=== PATIENT | female | born 1975 | race Caucasian/White ===

== ENCOUNTER 2022-07-11 17:14 | Inpatient (IN) | payer OTHER ==
[2022-07-11 18:38] VITALS: BMI 25.7
[2022-07-11] MEDS ORDERED: chlordiazePOXIDE HCL 25 MG CAPSULE PO PRN (19:04)
[2022-07-11] MEDS ORDERED: DICYCLOMINE HCL 10 MG CAPSULE PO PRN (19:05)
[2022-07-11] MEDS ORDERED: ONDANSETRON *ODT* 4 MG TABLET SL PRN (19:05)
[2022-07-11] MEDS ORDERED: BENZOCAINE/MENTHOL (CHLORASEPTIC ) LOZENGE MM PRN (19:05)
[2022-07-11] MEDS ORDERED: MAGNESIUM CITRATE 300 ML BOTTLE PO PRN (19:05)
[2022-07-11] MEDS ORDERED: BISMUTH SUBSALICYLATE 524 MG/30 ML PO PRN (19:05)
[2022-07-11] MEDS ORDERED: ACETAMINOPHEN 325 MG TABLET (FP) PO PRN (19:05)
[2022-07-11] MEDS ORDERED: LOPERAMIDE HCL 2 MG CAPSULE PO PRN (19:05)
[2022-07-11] MEDS ORDERED: MAGNESIUM HYDROX 2400MG/30ML ORAL SUSPENSION 30 ML CUP PO PRN (19:05)
[2022-07-11] MEDS ORDERED: IBUPROFEN 400 MG TABLET (FP) PO PRN (19:05)
[2022-07-11] MEDS ORDERED: MELATONIN 5 MG TABLETS PO SCH (22:00)
[2022-07-11] MEDS: IBUPROFEN 600 MG TABLET (FP) PO PRN (22:30)
[2022-07-11] MEDS: MELATONIN 5 MG TABLETS PO SCH (22:30)
[2022-07-11] MEDS: THIAMINE HCL 100 MG TABLET (FP) PO SCH (22:31)
[2022-07-11] MEDS: PRENATAL VITAMINS W/ FOLIC ACID TABLET (FP) PO SCH (22:31)
[2022-07-11] MEDS: chlordiazePOXIDE HCL 25 MG CAPSULE PO SCH (22:31)
[2022-07-11] MEDS: hydrOXYzine PAMOATE 25 MG CAPSULE (FP) PO SCH (22:31)
[2022-07-12] MEDS: chlordiazePOXIDE HCL 25 MG CAPSULE PO SCH ×4 (06:39→22:08)
[2022-07-12] MEDS: hydrOXYzine PAMOATE 25 MG CAPSULE (FP) PO SCH ×5 (06:39→22:07)
[2022-07-12] MEDS: NICOTINE 10 MG CARTRIDGE (INHALER) IH PRN (10:21)
[2022-07-12] MEDS: PRENATAL VITAMINS W/ FOLIC ACID TABLET (FP) PO SCH (10:22)
[2022-07-12 11:14] LABS: HEMATOCRIT 38.9 % (32.4-45.2); MCH 31.6 pg (25.7-33.7); MCHC 33.5 g/dl (32.0-36.0); MEAN CELL VOLUME 94.3 fl (80-96); PLATELET COUNT 331 10^3/uL (134-434); RBC 4.12 M/mm3 (3.60-5.2); RDW 14.8 % (11.6-15.6); WHITE BLOOD COUNT 9.9 K/mm3 (4.0-10.0)
[2022-07-12 11:15] LABS: ALBUMIN 3.2 g/dl (3.4-5.0)
[2022-07-12 11:18] LABS: CREATININE 0.7 mg/dL (0.55-1.3)
[2022-07-12] MEDS: GABAPENTIN 100 MG CAPSULE PO SCH ×2 (15:20→22:07)
[2022-07-12] MEDS: ACETAMINOPHEN 325 MG TABLET (FP) PO PRN (15:21)
[2022-07-12] MEDS: ALBUTEROL SO4 HFA INHALER IH PRN (18:23)
[2022-07-12] MEDS: IBUPROFEN 600 MG TABLET (FP) PO PRN (19:31)
[2022-07-12] MEDS: BUDESONIDE/FORMETEROL FUMARATE 160/4.5 mcg INHALER IH SCH (22:06)
[2022-07-12] MEDS: MELATONIN 5 MG TABLETS PO SCH (22:07)
[2022-07-12] MEDS: THIAMINE HCL 100 MG TABLET (FP) PO SCH (22:07)
[2022-07-13] MEDS: GABAPENTIN 100 MG CAPSULE PO SCH ×3 (06:21→22:07)
[2022-07-13] MEDS: chlordiazePOXIDE HCL 25 MG CAPSULE PO SCH ×4 (06:21→22:11)
[2022-07-13] MEDS: hydrOXYzine PAMOATE 25 MG CAPSULE (FP) PO SCH ×5 (06:22→22:07)
[2022-07-13] MEDS: MONTELUKAST NA 10 MG TABLET PO SCH (06:23)
[2022-07-13] MEDS: NICOTINE 10 MG CARTRIDGE (INHALER) IH PRN ×2 (10:05→22:12)
[2022-07-13] MEDS: ALBUTEROL SO4 HFA INHALER IH PRN (10:05)
[2022-07-13] MEDS: PRENATAL VITAMINS W/ FOLIC ACID TABLET (FP) PO SCH (10:07)
[2022-07-13] MEDS: amLODIPine BESYLATE 5 MG TABLET (FP) PO SCH (10:07)
[2022-07-13] MEDS: BUDESONIDE/FORMETEROL FUMARATE 160/4.5 mcg INHALER IH SCH ×2 (10:11→22:07)
[2022-07-13] MEDS: METHOCARBAMOL 500 MG TABLET PO PRN ×2 (10:13→22:08)
[2022-07-13] MEDS: ACETAMINOPHEN 325 MG TABLET (FP) PO PRN (13:31)
[2022-07-13] MEDS: MELATONIN 5 MG TABLETS PO SCH (22:07)
[2022-07-13] MEDS: THIAMINE HCL 100 MG TABLET (FP) PO SCH (22:07)
[2022-07-14] MEDS ORDERED: chlordiazePOXIDE HCL 10 MG CAPSULE PO PRN
[2022-07-14] MEDS: ALBUTEROL SO4 HFA INHALER IH PRN (02:09)
[2022-07-14] MEDS: IBUPROFEN 400 MG TABLET (FP) PO PRN (02:11)
[2022-07-14] MEDS: hydrOXYzine PAMOATE 25 MG CAPSULE (FP) PO SCH ×5 (06:06→22:25)
[2022-07-14] MEDS: chlordiazePOXIDE HCL 10 MG CAPSULE PO SCH ×4 (06:06→22:26)
[2022-07-14] MEDS: METHOCARBAMOL 500 MG TABLET PO PRN ×2 (06:06→14:38)
[2022-07-14] MEDS: MONTELUKAST NA 10 MG TABLET PO SCH (06:06)
[2022-07-14] MEDS: GABAPENTIN 100 MG CAPSULE PO SCH ×3 (06:06→22:25)
[2022-07-14] MEDS: amLODIPine BESYLATE 5 MG TABLET (FP) PO SCH (10:36)
[2022-07-14] MEDS: PRENATAL VITAMINS W/ FOLIC ACID TABLET (FP) PO SCH (10:36)
[2022-07-14] MEDS: NICOTINE 10 MG CARTRIDGE (INHALER) IH PRN (10:38)
[2022-07-14] MEDS: BUDESONIDE/FORMETEROL FUMARATE 160/4.5 mcg INHALER IH SCH ×2 (10:38→22:24)
[2022-07-14] MEDS: IBUPROFEN 600 MG TABLET (FP) PO PRN (10:41)
[2022-07-14] MEDS: MAG HYDROX/AL HYDROX/SIMETH 30 ML UNIT-DOSE CUP PO PRN (18:59)
[2022-07-14] MEDS: MELATONIN 5 MG TABLETS PO SCH (22:24)
[2022-07-14] MEDS: THIAMINE HCL 100 MG TABLET (FP) PO SCH (22:25)
[2022-07-15] MEDS: ALBUTEROL SO4 HFA INHALER IH PRN ×3 (01:26→17:55)
[2022-07-15] MEDS: IBUPROFEN 600 MG TABLET (FP) PO PRN (04:28)
[2022-07-15] MEDS: METHOCARBAMOL 500 MG TABLET PO PRN ×3 (04:28→22:12)
[2022-07-15] MEDS: chlordiazePOXIDE HCL 10 MG CAPSULE PO SCH ×2 (04:30→17:48)
[2022-07-15] MEDS: hydrOXYzine PAMOATE 25 MG CAPSULE (FP) PO SCH ×5 (05:08→22:12)
[2022-07-15] MEDS: GABAPENTIN 100 MG CAPSULE PO SCH ×3 (05:08→22:12)
[2022-07-15] MEDS: MONTELUKAST NA 10 MG TABLET PO SCH (07:03)
[2022-07-15] MEDS: amLODIPine BESYLATE 5 MG TABLET (FP) PO SCH (10:19)
[2022-07-15] MEDS: BUDESONIDE/FORMETEROL FUMARATE 160/4.5 mcg INHALER IH SCH ×2 (10:19→22:12)
[2022-07-15] MEDS: NICOTINE 10 MG CARTRIDGE (INHALER) IH PRN ×2 (10:20→22:13)
[2022-07-15] MEDS: PRENATAL VITAMINS W/ FOLIC ACID TABLET (FP) PO SCH (10:20)
[2022-07-15] MEDS: ACETAMINOPHEN 325 MG TABLET (FP) PO PRN (17:53)
[2022-07-15] MEDS: MAG HYDROX/AL HYDROX/SIMETH 30 ML UNIT-DOSE CUP PO PRN (22:12)
[2022-07-15] MEDS: THIAMINE HCL 100 MG TABLET (FP) PO SCH (22:12)
[2022-07-15] MEDS: MELATONIN 5 MG TABLETS PO SCH (22:15)
[2022-07-16] MEDS ORDERED: chlordiazePOXIDE HCL 10 MG CAPSULE PO ONE (05:00)
[2022-07-16] MEDS: hydrOXYzine PAMOATE 25 MG CAPSULE (FP) PO SCH ×3 (06:12→13:41)
[2022-07-16] MEDS: GABAPENTIN 100 MG CAPSULE PO SCH ×2 (06:12→13:41)
[2022-07-16] MEDS: MONTELUKAST NA 10 MG TABLET PO SCH (06:13)
[2022-07-16] MEDS: METHOCARBAMOL 500 MG TABLET PO PRN ×2 (06:14→13:41)
[2022-07-16] MEDS: BUDESONIDE/FORMETEROL FUMARATE 160/4.5 mcg INHALER IH SCH (10:11)
[2022-07-16] MEDS: ALBUTEROL SO4 HFA INHALER IH PRN (10:11)
[2022-07-16] MEDS: PRENATAL VITAMINS W/ FOLIC ACID TABLET (FP) PO SCH (10:12)
[2022-07-16] MEDS: amLODIPine BESYLATE 5 MG TABLET (FP) PO SCH (10:12)
[2022-07-16] MEDS: IBUPROFEN 400 MG TABLET (FP) PO PRN (10:14)
[2022-07-16 13:13] VITALS: BP 99/60; PULSE 83; RESP 18; TEMP 97.3
== END 2022-07-16 15:17 | disposition other institution (70) | DRG 775 ==
LOC: YASAS 17:14 → Y3N 20:34
PROVIDERS: ADMIT Allergy & Immunology; ATTEND Surgery
PROC: HZ2ZZZZ Detoxification Services for Substance Abuse Treatment (ICD-10-PCS; principal; 2022-07-11)
DX: F10.230 Alcohol dependence with withdrawal, uncomplicated (principal); F17.210 Nicotine dependence, cigarettes, uncomplicated; I10 Essential (primary) hypertension; M25.569 Pain in unspecified knee; G89.29 Other chronic pain; K21.9 Gastro-esophageal reflux disease without esophagitis
CPT/HCPCS: 36415; 80053; 81025; 85027; 86780; C9803-CS; Q0162; U0003; U0005

== ENCOUNTER 2022-07-16 15:25 | Inpatient (IN) | payer OTHER ==
[2022-07-16] MEDS ORDERED: guaiFENesin 200 MG/10 ML 10 ML UNIT-DOSE CUPS PO PRN (16:00)
[2022-07-16] MEDS ORDERED: MAG HYDROX/AL HYDROX/SIMETH 30 ML UNIT-DOSE CUP PO PRN (16:00)
[2022-07-16] MEDS ORDERED: BENZOCAINE/MENTHOL (CHLORASEPTIC ) LOZENGE MM PRN (16:00)
[2022-07-16] MEDS ORDERED: P-EPHED 60MG/TRIPROLIDI 2.5MG TABLET PO PRN (16:00)
[2022-07-16] MEDS ORDERED: MAGNESIUM CITRATE 300 ML BOTTLE PO PRN (16:00)
[2022-07-16] MEDS ORDERED: LOPERAMIDE HCL 2 MG CAPSULE PO PRN (16:00)
[2022-07-16] MEDS ORDERED: TUBERCULIN PPD 5 TU/0.1ML VIAL ID ONE (17:53)
[2022-07-16] MEDS: NICOTINE 10 MG CARTRIDGE (INHALER) IH PRN (21:23)
[2022-07-16] MEDS: BUDESONIDE/FORMETEROL FUMARATE 160/4.5 mcg INHALER IH SCH (21:23)
[2022-07-16] MEDS: GABAPENTIN 100 MG CAPSULE PO SCH (21:24)
[2022-07-16] MEDS: THIAMINE HCL 100 MG TABLET (FP) PO SCH (21:24)
[2022-07-16] MEDS: hydrOXYzine PAMOATE 25 MG CAPSULE (FP) PO PRN (21:26)
[2022-07-16] MEDS ORDERED: MELATONIN 5 MG TABLETS PO SCH (22:00)
[2022-07-17] MEDS: IBUPROFEN 400 MG TABLET (FP) PO PRN ×2 (06:26→21:28)
[2022-07-17] MEDS: GABAPENTIN 100 MG CAPSULE PO SCH ×3 (06:26→21:24)
[2022-07-17] MEDS: MONTELUKAST NA 10 MG TABLET PO SCH (06:26)
[2022-07-17] MEDS: NICOTINE 7 MG/24 HOURS TOPICAL PATCH TD SCH (10:15)
[2022-07-17] MEDS: PRENATAL VITAMINS W/ FOLIC ACID TABLET (FP) PO SCH (10:15)
[2022-07-17] MEDS: BUDESONIDE/FORMETEROL FUMARATE 160/4.5 mcg INHALER IH SCH ×2 (10:15→21:25)
[2022-07-17] MEDS: NICOTINE 10 MG CARTRIDGE (INHALER) IH PRN ×2 (10:16→21:30)
[2022-07-17] MEDS: amLODIPine BESYLATE 5 MG TABLET (FP) PO SCH (10:16)
[2022-07-17] MEDS: hydrOXYzine PAMOATE 25 MG CAPSULE (FP) PO PRN ×2 (10:18→18:21)
[2022-07-17] MEDS ORDERED: LIDOCAINE 5% TOPICAL PATCH TP SCH ×2 (13:45)
[2022-07-17] MEDS: METHOCARBAMOL 500 MG TABLET PO PRN (14:32)
[2022-07-17 15:03] LABS: HIV INTERPRETATION NEGATIVE (NEGATIVE)
[2022-07-17] MEDS: LIDOCAINE 5% TOPICAL PATCH TP SCH (15:08)
[2022-07-17] MEDS: LIDOCAINE PATCH REMOVAL MC SCH (21:24)
[2022-07-17] MEDS: SUVOREXANT 10 MG TABLET PO PRN (21:25)
[2022-07-17] MEDS: THIAMINE HCL 100 MG TABLET (FP) PO SCH (21:25)
[2022-07-17] MEDS ORDERED: LIDOCAINE PATCH REMOVAL MC SCH (22:00)
[2022-07-18] MEDS: NICOTINE 10 MG CARTRIDGE (INHALER) IH PRN ×2 (06:20→10:27)
[2022-07-18] MEDS: MONTELUKAST NA 10 MG TABLET PO SCH (06:20)
[2022-07-18] MEDS: GABAPENTIN 100 MG CAPSULE PO SCH ×2 (06:20→14:30)
[2022-07-18] MEDS: hydrOXYzine PAMOATE 25 MG CAPSULE (FP) PO PRN ×3 (06:21→14:30)
[2022-07-18] MEDS: IBUPROFEN 400 MG TABLET (FP) PO PRN ×2 (06:23→21:24)
[2022-07-18] MEDS: LIDOCAINE 5% TOPICAL PATCH TP SCH (10:24)
[2022-07-18] MEDS: BUDESONIDE/FORMETEROL FUMARATE 160/4.5 mcg INHALER IH SCH ×2 (10:25→21:43)
[2022-07-18] MEDS: NICOTINE 7 MG/24 HOURS TOPICAL PATCH TD SCH (10:25)
[2022-07-18] MEDS: amLODIPine BESYLATE 5 MG TABLET (FP) PO SCH (10:25)
[2022-07-18] MEDS: PRENATAL VITAMINS W/ FOLIC ACID TABLET (FP) PO SCH (10:25)
[2022-07-18] MEDS: ALBUTEROL SO4 HFA INHALER IH PRN (10:26)
[2022-07-18] MEDS: THIAMINE HCL 100 MG TABLET (FP) PO SCH (21:22)
[2022-07-18] MEDS: METHOCARBAMOL 500 MG TABLET PO PRN (21:22)
[2022-07-18] MEDS: GABAPENTIN 300 MG CAPSULE PO SCH (21:23)
[2022-07-18] MEDS: SUVOREXANT 10 MG TABLET PO PRN (21:24)
[2022-07-18] MEDS: LIDOCAINE PATCH REMOVAL MC SCH (21:43)
[2022-07-19] MEDS: hydrOXYzine PAMOATE 25 MG CAPSULE (FP) PO PRN ×3 (06:24→21:41)
[2022-07-19] MEDS: IBUPROFEN 400 MG TABLET (FP) PO PRN ×2 (06:24→21:41)
[2022-07-19] MEDS: MONTELUKAST NA 10 MG TABLET PO SCH (06:24)
[2022-07-19] MEDS: GABAPENTIN 300 MG CAPSULE PO SCH ×3 (06:24→21:40)
[2022-07-19] MEDS: NICOTINE 10 MG CARTRIDGE (INHALER) IH PRN ×3 (06:26→21:43)
[2022-07-19] MEDS: LIDOCAINE 5% TOPICAL PATCH TP SCH (10:12)
[2022-07-19] MEDS: PRENATAL VITAMINS W/ FOLIC ACID TABLET (FP) PO SCH (10:13)
[2022-07-19] MEDS: BUDESONIDE/FORMETEROL FUMARATE 160/4.5 mcg INHALER IH SCH ×2 (10:13→21:40)
[2022-07-19] MEDS: NICOTINE 7 MG/24 HOURS TOPICAL PATCH TD SCH (10:14)
[2022-07-19] MEDS: amLODIPine BESYLATE 5 MG TABLET (FP) PO SCH (10:14)
[2022-07-19] MEDS: ALBUTEROL SO4 HFA INHALER IH PRN (10:14)
[2022-07-19 14:39] LABS: PH,URINE 6.5 (5.0-8.0); URINE APPEARANCE CLEAR; URINE BILIRUBIN NEGATIVE (NEGATIVE); URINE COLOR YELLOW; URINE GLUCOSE (UA) NEGATIVE (NEGATIVE); URINE KETONE NEGATIVE (NEGATIVE); URINE LEUK ESTERASE NEGATIVE (NEGATIVE); URINE NITRITE NEGATIVE (NEGATIVE); URINE PROTEIN NEGATIVE (NEGATIVE); URINE UROBILINOGEN 0.2 mg/dL (0.2-1.0)
[2022-07-19] MEDS: NALTREXONE HCL 50 MG TABLET PO SCH (14:41)
[2022-07-19] MEDS: THIAMINE HCL 100 MG TABLET (FP) PO SCH (21:40)
[2022-07-19] MEDS: COLLOIDAL OATMEAL 1 BAR EACH TP PRN (21:44)
[2022-07-19] MEDS: LIDOCAINE PATCH REMOVAL MC SCH (21:59)
[2022-07-20] MEDS: GABAPENTIN 300 MG CAPSULE PO SCH ×3 (08:04→21:39)
[2022-07-20] MEDS: MONTELUKAST NA 10 MG TABLET PO SCH (08:04)
[2022-07-20] MEDS: NICOTINE 7 MG/24 HOURS TOPICAL PATCH TD SCH (10:06)
[2022-07-20] MEDS: NICOTINE 10 MG CARTRIDGE (INHALER) IH PRN (10:06)
[2022-07-20] MEDS: LIDOCAINE 5% TOPICAL PATCH TP SCH (10:07)
[2022-07-20] MEDS: NALTREXONE HCL 50 MG TABLET PO SCH (10:08)
[2022-07-20] MEDS: amLODIPine BESYLATE 5 MG TABLET (FP) PO SCH (10:08)
[2022-07-20] MEDS: PRENATAL VITAMINS W/ FOLIC ACID TABLET (FP) PO SCH (10:09)
[2022-07-20] MEDS: BUDESONIDE/FORMETEROL FUMARATE 160/4.5 mcg INHALER IH SCH ×2 (10:09→21:38)
[2022-07-20] MEDS: LIDOCAINE PATCH REMOVAL MC SCH (21:39)
[2022-07-20] MEDS: METHOCARBAMOL 500 MG TABLET PO PRN (21:39)
[2022-07-20] MEDS: hydrOXYzine PAMOATE 25 MG CAPSULE (FP) PO PRN (21:39)
[2022-07-20] MEDS: THIAMINE HCL 100 MG TABLET (FP) PO SCH (21:39)
[2022-07-20] MEDS: SUVOREXANT 10 MG TABLET PO PRN (21:40)
[2022-07-21] MEDS: MONTELUKAST NA 10 MG TABLET PO SCH (06:34)
[2022-07-21] MEDS: GABAPENTIN 300 MG CAPSULE PO SCH ×3 (06:34→21:43)
[2022-07-21] MEDS: PRENATAL VITAMINS W/ FOLIC ACID TABLET (FP) PO SCH (10:02)
[2022-07-21] MEDS: IBUPROFEN 400 MG TABLET (FP) PO PRN ×2 (10:02→21:45)
[2022-07-21] MEDS: amLODIPine BESYLATE 5 MG TABLET (FP) PO SCH (10:03)
[2022-07-21] MEDS: NICOTINE 7 MG/24 HOURS TOPICAL PATCH TD SCH (10:03)
[2022-07-21] MEDS: LIDOCAINE 5% TOPICAL PATCH TP SCH (10:03)
[2022-07-21] MEDS: NICOTINE 10 MG CARTRIDGE (INHALER) IH PRN ×3 (10:04→21:46)
[2022-07-21] MEDS: NALTREXONE HCL 50 MG TABLET PO SCH (10:05)
[2022-07-21] MEDS: BUDESONIDE/FORMETEROL FUMARATE 160/4.5 mcg INHALER IH SCH ×2 (10:05→21:46)
[2022-07-21] MEDS: ALBUTEROL SO4 HFA INHALER IH PRN (10:06)
[2022-07-21] MEDS: LIDOCAINE PATCH REMOVAL MC SCH (21:42)
[2022-07-21] MEDS: METHOCARBAMOL 500 MG TABLET PO PRN (21:43)
[2022-07-21] MEDS: THIAMINE HCL 100 MG TABLET (FP) PO SCH (21:43)
[2022-07-21] MEDS: hydrOXYzine PAMOATE 25 MG CAPSULE (FP) PO PRN (21:43)
[2022-07-21] MEDS: SUVOREXANT 15 MG TABLET PO PRN (21:44)
[2022-07-22] MEDS: MONTELUKAST NA 10 MG TABLET PO SCH (06:06)
[2022-07-22] MEDS: GABAPENTIN 300 MG CAPSULE PO SCH ×3 (06:06→21:31)
[2022-07-22] MEDS: NICOTINE 10 MG CARTRIDGE (INHALER) IH PRN ×4 (06:07→21:31)
[2022-07-22] MEDS: PRENATAL VITAMINS W/ FOLIC ACID TABLET (FP) PO SCH (10:17)
[2022-07-22] MEDS: METHOCARBAMOL 500 MG TABLET PO PRN ×2 (10:18→21:33)
[2022-07-22] MEDS: NALTREXONE HCL 50 MG TABLET PO SCH (10:18)
[2022-07-22] MEDS: BUDESONIDE/FORMETEROL FUMARATE 160/4.5 mcg INHALER IH SCH ×2 (10:18→21:41)
[2022-07-22] MEDS: amLODIPine BESYLATE 5 MG TABLET (FP) PO SCH (10:18)
[2022-07-22] MEDS: LIDOCAINE 5% TOPICAL PATCH TP SCH (10:19)
[2022-07-22] MEDS: NICOTINE 7 MG/24 HOURS TOPICAL PATCH TD SCH (10:19)
[2022-07-22] MEDS: IBUPROFEN 400 MG TABLET (FP) PO PRN (14:12)
[2022-07-22] MEDS: hydrOXYzine PAMOATE 25 MG CAPSULE (FP) PO PRN (21:31)
[2022-07-22] MEDS: THIAMINE HCL 100 MG TABLET (FP) PO SCH (21:31)
[2022-07-22] MEDS: SUVOREXANT 15 MG TABLET PO PRN (21:32)
[2022-07-22] MEDS: LIDOCAINE PATCH REMOVAL MC SCH (21:42)
[2022-07-23] MEDS: MONTELUKAST NA 10 MG TABLET PO SCH (06:13)
[2022-07-23] MEDS: GABAPENTIN 300 MG CAPSULE PO SCH ×3 (06:13→21:25)
[2022-07-23] MEDS: NICOTINE 10 MG CARTRIDGE (INHALER) IH PRN ×2 (06:13→21:25)
[2022-07-23] MEDS: IBUPROFEN 400 MG TABLET (FP) PO PRN (06:14)
[2022-07-23] MEDS: NALTREXONE HCL 50 MG TABLET PO SCH (10:20)
[2022-07-23] MEDS: BUDESONIDE/FORMETEROL FUMARATE 160/4.5 mcg INHALER IH SCH ×2 (10:20→21:24)
[2022-07-23] MEDS: NICOTINE 7 MG/24 HOURS TOPICAL PATCH TD SCH (10:20)
[2022-07-23] MEDS: LIDOCAINE 5% TOPICAL PATCH TP SCH (10:20)
[2022-07-23] MEDS: amLODIPine BESYLATE 5 MG TABLET (FP) PO SCH (10:21)
[2022-07-23] MEDS: PRENATAL VITAMINS W/ FOLIC ACID TABLET (FP) PO SCH (10:21)
[2022-07-23] MEDS: METHOCARBAMOL 500 MG TABLET PO PRN ×2 (10:21→21:27)
[2022-07-23] MEDS: SUVOREXANT 15 MG TABLET PO PRN (21:24)
[2022-07-23] MEDS: THIAMINE HCL 100 MG TABLET (FP) PO SCH (21:25)
[2022-07-23] MEDS: hydrOXYzine PAMOATE 25 MG CAPSULE (FP) PO PRN (21:25)
[2022-07-23] MEDS: LIDOCAINE PATCH REMOVAL MC SCH (21:25)
[2022-07-23] MEDS: ACETAMINOPHEN 325 MG TABLET (FP) PO PRN (21:26)
[2022-07-24] MEDS: MONTELUKAST NA 10 MG TABLET PO SCH (06:26)
[2022-07-24] MEDS: GABAPENTIN 300 MG CAPSULE PO SCH ×3 (06:26→21:28)
[2022-07-24] MEDS: ACETAMINOPHEN 325 MG TABLET (FP) PO PRN ×2 (06:27→14:29)
[2022-07-24] MEDS: NICOTINE 10 MG CARTRIDGE (INHALER) IH PRN ×3 (06:28→21:28)
[2022-07-24] MEDS: BUDESONIDE/FORMETEROL FUMARATE 160/4.5 mcg INHALER IH SCH ×2 (10:21→21:27)
[2022-07-24] MEDS: PRENATAL VITAMINS W/ FOLIC ACID TABLET (FP) PO SCH (10:21)
[2022-07-24] MEDS: NALTREXONE HCL 50 MG TABLET PO SCH (10:22)
[2022-07-24] MEDS: NICOTINE 7 MG/24 HOURS TOPICAL PATCH TD SCH (10:22)
[2022-07-24] MEDS: amLODIPine BESYLATE 5 MG TABLET (FP) PO SCH (10:22)
[2022-07-24] MEDS: LIDOCAINE 5% TOPICAL PATCH TP SCH (10:22)
[2022-07-24] MEDS: METHOCARBAMOL 500 MG TABLET PO PRN ×2 (10:23→21:28)
[2022-07-24] MEDS: IBUPROFEN 400 MG TABLET (FP) PO PRN ×2 (10:23→21:31)
[2022-07-24] MEDS: ALBUTEROL SO4 HFA INHALER IH PRN (10:25)
[2022-07-24] MEDS: hydrOXYzine PAMOATE 25 MG CAPSULE (FP) PO PRN (21:28)
[2022-07-24] MEDS: THIAMINE HCL 100 MG TABLET (FP) PO SCH (21:28)
[2022-07-24] MEDS: SUVOREXANT 15 MG TABLET PO PRN (21:29)
[2022-07-24] MEDS: LIDOCAINE PATCH REMOVAL MC SCH (23:02)
[2022-07-25] MEDS: GABAPENTIN 300 MG CAPSULE PO SCH ×3 (06:14→21:38)
[2022-07-25] MEDS: MONTELUKAST NA 10 MG TABLET PO SCH (06:15)
[2022-07-25] MEDS: ACETAMINOPHEN 325 MG TABLET (FP) PO PRN (06:15)
[2022-07-25] MEDS: PRENATAL VITAMINS W/ FOLIC ACID TABLET (FP) PO SCH (10:04)
[2022-07-25] MEDS: BUDESONIDE/FORMETEROL FUMARATE 160/4.5 mcg INHALER IH SCH ×2 (10:04→21:37)
[2022-07-25] MEDS: NICOTINE 10 MG CARTRIDGE (INHALER) IH PRN ×2 (10:05→21:40)
[2022-07-25] MEDS: NALTREXONE HCL 50 MG TABLET PO SCH (10:05)
[2022-07-25] MEDS: amLODIPine BESYLATE 5 MG TABLET (FP) PO SCH (10:05)
[2022-07-25] MEDS: NICOTINE 7 MG/24 HOURS TOPICAL PATCH TD SCH (10:06)
[2022-07-25] MEDS: METHOCARBAMOL 500 MG TABLET PO PRN ×2 (10:08→21:38)
[2022-07-25] MEDS: IBUPROFEN 400 MG TABLET (FP) PO PRN (10:08)
[2022-07-25] MEDS: LIDOCAINE 5% TOPICAL PATCH TP SCH (10:09)
[2022-07-25] MEDS: hydrOXYzine PAMOATE 25 MG CAPSULE (FP) PO PRN ×2 (10:38→21:37)
[2022-07-25] MEDS: THIAMINE HCL 100 MG TABLET (FP) PO SCH (21:38)
[2022-07-25] MEDS: SUVOREXANT 15 MG TABLET PO PRN (21:38)
[2022-07-25] MEDS: LIDOCAINE PATCH REMOVAL MC SCH (21:38)
[2022-07-26] MEDS: GABAPENTIN 300 MG CAPSULE PO SCH ×3 (06:17→21:36)
[2022-07-26] MEDS: MONTELUKAST NA 10 MG TABLET PO SCH (06:17)
[2022-07-26] MEDS: NICOTINE 10 MG CARTRIDGE (INHALER) IH PRN ×2 (06:18→10:10)
[2022-07-26] MEDS: PRENATAL VITAMINS W/ FOLIC ACID TABLET (FP) PO SCH (10:05)
[2022-07-26] MEDS: METHOCARBAMOL 500 MG TABLET PO PRN ×2 (10:07→21:36)
[2022-07-26] MEDS: NALTREXONE HCL 50 MG TABLET PO SCH (10:07)
[2022-07-26] MEDS: amLODIPine BESYLATE 5 MG TABLET (FP) PO SCH (10:07)
[2022-07-26] MEDS: BUDESONIDE/FORMETEROL FUMARATE 160/4.5 mcg INHALER IH SCH ×2 (10:07→21:35)
[2022-07-26] MEDS: IBUPROFEN 400 MG TABLET (FP) PO PRN ×2 (10:08→21:38)
[2022-07-26] MEDS: NICOTINE 7 MG/24 HOURS TOPICAL PATCH TD SCH (10:09)
[2022-07-26] MEDS: LIDOCAINE 5% TOPICAL PATCH TP SCH (10:09)
[2022-07-26] MEDS: ALBUTEROL SO4 HFA INHALER IH PRN (10:10)
[2022-07-26] MEDS: hydrOXYzine PAMOATE 25 MG CAPSULE (FP) PO PRN ×2 (14:36→21:35)
[2022-07-26] MEDS: THIAMINE HCL 100 MG TABLET (FP) PO SCH (21:35)
[2022-07-26] MEDS: LIDOCAINE PATCH REMOVAL MC SCH (21:36)
[2022-07-26] MEDS: SUVOREXANT 15 MG TABLET PO PRN (21:36)
[2022-07-27] MEDS: MONTELUKAST NA 10 MG TABLET PO SCH (06:11)
[2022-07-27] MEDS: GABAPENTIN 300 MG CAPSULE PO SCH ×3 (06:11→21:53)
[2022-07-27] MEDS: hydrOXYzine PAMOATE 25 MG CAPSULE (FP) PO PRN ×3 (10:04→21:53)
[2022-07-27] MEDS: NALTREXONE HCL 50 MG TABLET PO SCH (10:05)
[2022-07-27] MEDS: LIDOCAINE 5% TOPICAL PATCH TP SCH (10:05)
[2022-07-27] MEDS: IBUPROFEN 400 MG TABLET (FP) PO PRN (10:05)
[2022-07-27] MEDS: NICOTINE 7 MG/24 HOURS TOPICAL PATCH TD SCH (10:05)
[2022-07-27] MEDS: BUDESONIDE/FORMETEROL FUMARATE 160/4.5 mcg INHALER IH SCH ×2 (10:05→22:18)
[2022-07-27] MEDS: PRENATAL VITAMINS W/ FOLIC ACID TABLET (FP) PO SCH (10:05)
[2022-07-27] MEDS: METHOCARBAMOL 500 MG TABLET PO PRN ×2 (10:05→21:53)
[2022-07-27] MEDS: NICOTINE 10 MG CARTRIDGE (INHALER) IH PRN ×2 (10:05→21:54)
[2022-07-27] MEDS: amLODIPine BESYLATE 5 MG TABLET (FP) PO SCH (12:20)
[2022-07-27] MEDS: ACETAMINOPHEN 325 MG TABLET (FP) PO PRN (14:12)
[2022-07-27] MEDS: THIAMINE HCL 100 MG TABLET (FP) PO SCH (21:53)
[2022-07-27] MEDS: LIDOCAINE PATCH REMOVAL MC SCH (22:18)
[2022-07-28] MEDS: GABAPENTIN 300 MG CAPSULE PO SCH ×3 (06:11→21:49)
[2022-07-28] MEDS: MONTELUKAST NA 10 MG TABLET PO SCH (06:11)
[2022-07-28] MEDS: NICOTINE 10 MG CARTRIDGE (INHALER) IH PRN ×2 (10:08→14:20)
[2022-07-28] MEDS: PRENATAL VITAMINS W/ FOLIC ACID TABLET (FP) PO SCH (10:08)
[2022-07-28] MEDS: METHOCARBAMOL 500 MG TABLET PO PRN ×2 (10:09→21:49)
[2022-07-28] MEDS: BUDESONIDE/FORMETEROL FUMARATE 160/4.5 mcg INHALER IH SCH ×2 (10:09→23:23)
[2022-07-28] MEDS: NICOTINE 7 MG/24 HOURS TOPICAL PATCH TD SCH (10:09)
[2022-07-28] MEDS: amLODIPine BESYLATE 5 MG TABLET (FP) PO SCH (10:09)
[2022-07-28] MEDS: LIDOCAINE 5% TOPICAL PATCH TP SCH (10:10)
[2022-07-28] MEDS: IBUPROFEN 400 MG TABLET (FP) PO PRN (10:10)
[2022-07-28] MEDS: NALTREXONE HCL 50 MG TABLET PO SCH (10:10)
[2022-07-28] MEDS: hydrOXYzine PAMOATE 25 MG CAPSULE (FP) PO PRN ×3 (10:11→21:49)
[2022-07-28] MEDS ORDERED: SUVOREXANT 10 MG TABLET PO PRN (13:49)
[2022-07-28] MEDS: THIAMINE HCL 100 MG TABLET (FP) PO SCH (21:49)
[2022-07-28] MEDS: ACETAMINOPHEN 325 MG TABLET (FP) PO PRN (21:50)
[2022-07-28] MEDS: SUVOREXANT 15 MG TABLET PO PRN (21:52)
[2022-07-28] MEDS: LIDOCAINE PATCH REMOVAL MC SCH (23:22)
[2022-07-29] MEDS: MONTELUKAST NA 10 MG TABLET PO SCH (06:06)
[2022-07-29] MEDS: GABAPENTIN 300 MG CAPSULE PO SCH ×3 (06:06→21:45)
[2022-07-29] MEDS: IBUPROFEN 400 MG TABLET (FP) PO PRN (06:07)
[2022-07-29] MEDS: PRENATAL VITAMINS W/ FOLIC ACID TABLET (FP) PO SCH (10:44)
[2022-07-29] MEDS: BUDESONIDE/FORMETEROL FUMARATE 160/4.5 mcg INHALER IH SCH ×2 (10:44→21:45)
[2022-07-29] MEDS: amLODIPine BESYLATE 5 MG TABLET (FP) PO SCH (10:45)
[2022-07-29] MEDS: hydrOXYzine PAMOATE 25 MG CAPSULE (FP) PO PRN ×3 (10:45→21:45)
[2022-07-29] MEDS: NALTREXONE HCL 50 MG TABLET PO SCH (10:45)
[2022-07-29] MEDS: ACETAMINOPHEN 325 MG TABLET (FP) PO PRN (10:45)
[2022-07-29] MEDS: NICOTINE 7 MG/24 HOURS TOPICAL PATCH TD SCH (10:46)
[2022-07-29] MEDS: NICOTINE 10 MG CARTRIDGE (INHALER) IH PRN (10:47)
[2022-07-29] MEDS: ALBUTEROL SO4 HFA INHALER IH PRN (10:48)
[2022-07-29] MEDS: LIDOCAINE 5% TOPICAL PATCH TP SCH (11:39)
[2022-07-29] MEDS: HYDROCORTISONE 2.5% TOPICAL CREAM 30 GM TUBE TP SCH ×2 (14:51→21:46)
[2022-07-29] MEDS: SUVOREXANT 15 MG TABLET PO PRN (21:44)
[2022-07-29] MEDS: METHOCARBAMOL 500 MG TABLET PO PRN (21:45)
[2022-07-29] MEDS: THIAMINE HCL 100 MG TABLET (FP) PO SCH (21:45)
[2022-07-29] MEDS: LIDOCAINE PATCH REMOVAL MC SCH (21:46)
[2022-07-30] MEDS: MONTELUKAST NA 10 MG TABLET PO SCH (06:29)
[2022-07-30] MEDS: GABAPENTIN 300 MG CAPSULE PO SCH ×3 (06:29→21:27)
[2022-07-30] MEDS: ALBUTEROL SO4 HFA INHALER IH PRN (10:17)
[2022-07-30] MEDS: PRENATAL VITAMINS W/ FOLIC ACID TABLET (FP) PO SCH (10:17)
[2022-07-30] MEDS: BUDESONIDE/FORMETEROL FUMARATE 160/4.5 mcg INHALER IH SCH ×2 (10:17→21:28)
[2022-07-30] MEDS: NALTREXONE HCL 50 MG TABLET PO SCH (10:18)
[2022-07-30] MEDS: amLODIPine BESYLATE 5 MG TABLET (FP) PO SCH (10:18)
[2022-07-30] MEDS: HYDROCORTISONE 2.5% TOPICAL CREAM 30 GM TUBE TP SCH ×2 (10:19→21:49)
[2022-07-30] MEDS: NICOTINE 7 MG/24 HOURS TOPICAL PATCH TD SCH (10:19)
[2022-07-30] MEDS: LIDOCAINE 5% TOPICAL PATCH TP SCH (10:19)
[2022-07-30] MEDS: METHOCARBAMOL 500 MG TABLET PO PRN ×2 (10:20→21:27)
[2022-07-30] MEDS: hydrOXYzine PAMOATE 25 MG CAPSULE (FP) PO PRN ×2 (10:21→21:27)
[2022-07-30] MEDS: IBUPROFEN 400 MG TABLET (FP) PO PRN ×2 (10:21→21:30)
[2022-07-30] MEDS: NICOTINE 10 MG CARTRIDGE (INHALER) IH PRN (10:21)
[2022-07-30] MEDS: THIAMINE HCL 100 MG TABLET (FP) PO SCH (21:28)
[2022-07-30] MEDS: LIDOCAINE PATCH REMOVAL MC SCH (21:49)
[2022-07-31] MEDS: IBUPROFEN 400 MG TABLET (FP) PO PRN ×2 (06:25→13:55)
[2022-07-31] MEDS: GABAPENTIN 300 MG CAPSULE PO SCH ×3 (06:26→21:41)
[2022-07-31] MEDS: MONTELUKAST NA 10 MG TABLET PO SCH (06:26)
[2022-07-31] MEDS: NALTREXONE HCL 50 MG TABLET PO SCH (10:28)
[2022-07-31] MEDS: NICOTINE 7 MG/24 HOURS TOPICAL PATCH TD SCH (10:28)
[2022-07-31] MEDS: PRENATAL VITAMINS W/ FOLIC ACID TABLET (FP) PO SCH (10:28)
[2022-07-31] MEDS: amLODIPine BESYLATE 5 MG TABLET (FP) PO SCH (10:28)
[2022-07-31] MEDS: BUDESONIDE/FORMETEROL FUMARATE 160/4.5 mcg INHALER IH SCH ×2 (10:28→21:42)
[2022-07-31] MEDS: LIDOCAINE 5% TOPICAL PATCH TP SCH (10:29)
[2022-07-31] MEDS: HYDROCORTISONE 2.5% TOPICAL CREAM 30 GM TUBE TP SCH ×2 (10:29→21:40)
[2022-07-31] MEDS: hydrOXYzine PAMOATE 25 MG CAPSULE (FP) PO PRN ×3 (10:30→21:46)
[2022-07-31] MEDS: METHOCARBAMOL 500 MG TABLET PO PRN ×2 (10:30→21:45)
[2022-07-31] MEDS: NICOTINE 10 MG CARTRIDGE (INHALER) IH PRN (10:31)
[2022-07-31] MEDS: LIDOCAINE PATCH REMOVAL MC SCH (21:41)
[2022-07-31] MEDS: SUVOREXANT 15 MG TABLET PO PRN (21:42)
[2022-07-31] MEDS: THIAMINE HCL 100 MG TABLET (FP) PO SCH (21:42)
[2022-08-01] MEDS: ACETAMINOPHEN 325 MG TABLET (FP) PO PRN (06:07)
[2022-08-01] MEDS: GABAPENTIN 300 MG CAPSULE PO SCH ×3 (06:08→21:52)
[2022-08-01] MEDS: MONTELUKAST NA 10 MG TABLET PO SCH (06:08)
[2022-08-01] MEDS: LIDOCAINE 5% TOPICAL PATCH TP SCH (10:18)
[2022-08-01] MEDS: BUDESONIDE/FORMETEROL FUMARATE 160/4.5 mcg INHALER IH SCH ×2 (10:19→21:52)
[2022-08-01] MEDS: ALBUTEROL SO4 HFA INHALER IH PRN (10:19)
[2022-08-01] MEDS: NALTREXONE HCL 50 MG TABLET PO SCH (10:21)
[2022-08-01] MEDS: amLODIPine BESYLATE 5 MG TABLET (FP) PO SCH (10:21)
[2022-08-01] MEDS: NICOTINE 7 MG/24 HOURS TOPICAL PATCH TD SCH (10:21)
[2022-08-01] MEDS: hydrOXYzine PAMOATE 25 MG CAPSULE (FP) PO PRN ×2 (10:22→21:52)
[2022-08-01] MEDS: NICOTINE 10 MG CARTRIDGE (INHALER) IH PRN ×2 (10:23→21:51)
[2022-08-01] MEDS: METHOCARBAMOL 500 MG TABLET PO PRN ×2 (10:23→21:51)
[2022-08-01] MEDS: PRENATAL VITAMINS W/ FOLIC ACID TABLET (FP) PO SCH (10:24)
[2022-08-01] MEDS: HYDROCORTISONE 2.5% TOPICAL CREAM 30 GM TUBE TP SCH ×2 (10:25→22:12)
[2022-08-01] MEDS: IBUPROFEN 400 MG TABLET (FP) PO PRN (10:26)
[2022-08-01] MEDS: THIAMINE HCL 100 MG TABLET (FP) PO SCH (21:51)
[2022-08-01] MEDS: SUVOREXANT 15 MG TABLET PO PRN (21:52)
[2022-08-01] MEDS: LIDOCAINE PATCH REMOVAL MC SCH (22:12)
[2022-08-02] MEDS: MONTELUKAST NA 10 MG TABLET PO SCH (06:25)
[2022-08-02] MEDS: ACETAMINOPHEN 325 MG TABLET (FP) PO PRN ×3 (06:25→14:23)
[2022-08-02] MEDS: GABAPENTIN 300 MG CAPSULE PO SCH ×3 (06:25→21:23)
[2022-08-02] MEDS: NICOTINE 10 MG CARTRIDGE (INHALER) IH PRN ×3 (06:27→14:22)
[2022-08-02] MEDS: PRENATAL VITAMINS W/ FOLIC ACID TABLET (FP) PO SCH (10:27)
[2022-08-02] MEDS: BUDESONIDE/FORMETEROL FUMARATE 160/4.5 mcg INHALER IH SCH ×2 (10:27→21:24)
[2022-08-02] MEDS: NALTREXONE HCL 50 MG TABLET PO SCH (10:27)
[2022-08-02] MEDS: LIDOCAINE 5% TOPICAL PATCH TP SCH (10:27)
[2022-08-02] MEDS: amLODIPine BESYLATE 5 MG TABLET (FP) PO SCH (10:27)
[2022-08-02] MEDS: NICOTINE 7 MG/24 HOURS TOPICAL PATCH TD SCH (10:27)
[2022-08-02] MEDS: METHOCARBAMOL 500 MG TABLET PO PRN ×2 (10:27→21:23)
[2022-08-02] MEDS: HYDROCORTISONE 2.5% TOPICAL CREAM 30 GM TUBE TP SCH (10:28)
[2022-08-02] MEDS: hydrOXYzine PAMOATE 25 MG CAPSULE (FP) PO PRN ×2 (10:29→21:24)
[2022-08-02] MEDS: THIAMINE HCL 100 MG TABLET (FP) PO SCH (21:23)
[2022-08-02] MEDS: SUVOREXANT 15 MG TABLET PO PRN (21:23)
[2022-08-02] MEDS: COLLOIDAL OATMEAL 1 BAR EACH TP PRN (21:24)
[2022-08-02] MEDS: PHENYLEPHRINE 0.25%/STARCH 1 EACH SUPP.RECT RC SCH (21:42)
[2022-08-02] MEDS: LIDOCAINE PATCH REMOVAL MC SCH (21:43)
[2022-08-03] MEDS: MONTELUKAST NA 10 MG TABLET PO SCH (06:11)
[2022-08-03] MEDS: ACETAMINOPHEN 325 MG TABLET (FP) PO PRN ×2 (06:11→10:20)
[2022-08-03] MEDS: GABAPENTIN 300 MG CAPSULE PO SCH ×3 (06:11→21:47)
[2022-08-03] MEDS: amLODIPine BESYLATE 5 MG TABLET (FP) PO SCH (10:17)
[2022-08-03] MEDS: PRENATAL VITAMINS W/ FOLIC ACID TABLET (FP) PO SCH (10:17)
[2022-08-03] MEDS: NICOTINE 7 MG/24 HOURS TOPICAL PATCH TD SCH (10:17)
[2022-08-03] MEDS: LIDOCAINE 5% TOPICAL PATCH TP SCH (10:17)
[2022-08-03] MEDS: NALTREXONE HCL 50 MG TABLET PO SCH (10:17)
[2022-08-03] MEDS: BUDESONIDE/FORMETEROL FUMARATE 160/4.5 mcg INHALER IH SCH ×2 (10:19→21:48)
[2022-08-03] MEDS: METHOCARBAMOL 500 MG TABLET PO PRN ×2 (10:20→21:47)
[2022-08-03] MEDS: ALBUTEROL SO4 HFA INHALER IH PRN (10:20)
[2022-08-03] MEDS: hydrOXYzine PAMOATE 25 MG CAPSULE (FP) PO PRN ×2 (10:20→21:47)
[2022-08-03] MEDS: PHENYLEPHRINE 0.25%/STARCH 1 EACH SUPP.RECT RC SCH ×2 (10:21→21:51)
[2022-08-03] MEDS: NICOTINE 10 MG CARTRIDGE (INHALER) IH PRN (10:22)
[2022-08-03] MEDS: THIAMINE HCL 100 MG TABLET (FP) PO SCH (21:47)
[2022-08-03] MEDS: SUVOREXANT 15 MG TABLET PO PRN (21:47)
[2022-08-03] MEDS: LIDOCAINE PATCH REMOVAL MC SCH (21:48)
[2022-08-04] MEDS: ACETAMINOPHEN 325 MG TABLET (FP) PO PRN (06:16)
[2022-08-04] MEDS: MONTELUKAST NA 10 MG TABLET PO SCH (06:17)
[2022-08-04] MEDS: GABAPENTIN 300 MG CAPSULE PO SCH ×3 (06:17→21:35)
[2022-08-04] MEDS: NICOTINE 10 MG CARTRIDGE (INHALER) IH PRN ×2 (10:33→14:01)
[2022-08-04] MEDS: amLODIPine BESYLATE 5 MG TABLET (FP) PO SCH (10:33)
[2022-08-04] MEDS: PRENATAL VITAMINS W/ FOLIC ACID TABLET (FP) PO SCH (10:33)
[2022-08-04] MEDS: ALBUTEROL SO4 HFA INHALER IH PRN (10:34)
[2022-08-04] MEDS: NALTREXONE HCL 50 MG TABLET PO SCH (10:34)
[2022-08-04] MEDS: BUDESONIDE/FORMETEROL FUMARATE 160/4.5 mcg INHALER IH SCH ×2 (10:34→21:34)
[2022-08-04] MEDS: METHOCARBAMOL 500 MG TABLET PO PRN ×2 (10:34→21:35)
[2022-08-04] MEDS: hydrOXYzine PAMOATE 25 MG CAPSULE (FP) PO PRN ×2 (10:36→21:35)
[2022-08-04] MEDS: LIDOCAINE 5% TOPICAL PATCH TP SCH (10:39)
[2022-08-04] MEDS: MAGNESIUM HYDROX 2400MG/30ML ORAL SUSPENSION 30 ML CUP PO PRN (10:39)
[2022-08-04] MEDS: NICOTINE 7 MG/24 HOURS TOPICAL PATCH TD SCH (10:40)
[2022-08-04] MEDS: PHENYLEPHRINE 0.25%/STARCH 1 EACH SUPP.RECT RC SCH ×2 (14:03→21:38)
[2022-08-04] MEDS: THIAMINE HCL 100 MG TABLET (FP) PO SCH (21:35)
[2022-08-04] MEDS: LIDOCAINE PATCH REMOVAL MC SCH (21:35)
[2022-08-04] MEDS: SUVOREXANT 15 MG TABLET PO PRN (21:38)
[2022-08-05] MEDS: MONTELUKAST NA 10 MG TABLET PO SCH (06:12)
[2022-08-05] MEDS: GABAPENTIN 300 MG CAPSULE PO SCH ×3 (06:12→21:45)
[2022-08-05] MEDS: NALTREXONE HCL 50 MG TABLET PO SCH (10:19)
[2022-08-05] MEDS: PHENYLEPHRINE 0.25%/STARCH 1 EACH SUPP.RECT RC SCH ×2 (10:19→21:48)
[2022-08-05] MEDS: amLODIPine BESYLATE 5 MG TABLET (FP) PO SCH (10:19)
[2022-08-05] MEDS: BUDESONIDE/FORMETEROL FUMARATE 160/4.5 mcg INHALER IH SCH ×2 (10:20→22:04)
[2022-08-05] MEDS: LIDOCAINE 5% TOPICAL PATCH TP SCH (10:20)
[2022-08-05] MEDS: NICOTINE 7 MG/24 HOURS TOPICAL PATCH TD SCH (10:20)
[2022-08-05] MEDS: NICOTINE 10 MG CARTRIDGE (INHALER) IH PRN (10:20)
[2022-08-05] MEDS: PRENATAL VITAMINS W/ FOLIC ACID TABLET (FP) PO SCH (10:20)
[2022-08-05] MEDS: hydrOXYzine PAMOATE 25 MG CAPSULE (FP) PO PRN ×3 (10:22→21:44)
[2022-08-05] MEDS: SUVOREXANT 15 MG TABLET PO PRN (21:44)
[2022-08-05] MEDS: METHOCARBAMOL 500 MG TABLET PO PRN (21:45)
[2022-08-05] MEDS: THIAMINE HCL 100 MG TABLET (FP) PO SCH (21:45)
[2022-08-05] MEDS: LIDOCAINE PATCH REMOVAL MC SCH (21:46)
[2022-08-06] MEDS: GABAPENTIN 300 MG CAPSULE PO SCH ×3 (06:06→21:31)
[2022-08-06] MEDS: MONTELUKAST NA 10 MG TABLET PO SCH (06:06)
[2022-08-06] MEDS: NICOTINE 10 MG CARTRIDGE (INHALER) IH PRN ×2 (10:14→21:31)
[2022-08-06] MEDS: BUDESONIDE/FORMETEROL FUMARATE 160/4.5 mcg INHALER IH SCH ×2 (10:15→21:30)
[2022-08-06] MEDS: NALTREXONE HCL 50 MG TABLET PO SCH (10:15)
[2022-08-06] MEDS: amLODIPine BESYLATE 5 MG TABLET (FP) PO SCH (10:15)
[2022-08-06] MEDS: NICOTINE 7 MG/24 HOURS TOPICAL PATCH TD SCH (10:15)
[2022-08-06] MEDS: LIDOCAINE 5% TOPICAL PATCH TP SCH (10:15)
[2022-08-06] MEDS: METHOCARBAMOL 500 MG TABLET PO PRN ×2 (10:17→21:30)
[2022-08-06] MEDS: ACETAMINOPHEN 325 MG TABLET (FP) PO PRN (10:17)
[2022-08-06] MEDS: PRENATAL VITAMINS W/ FOLIC ACID TABLET (FP) PO SCH (10:18)
[2022-08-06] MEDS: hydrOXYzine PAMOATE 25 MG CAPSULE (FP) PO PRN ×2 (10:18→21:31)
[2022-08-06] MEDS: PHENYLEPHRINE 0.25%/STARCH 1 EACH SUPP.RECT RC SCH ×2 (12:08→21:30)
[2022-08-06] MEDS: MAGNESIUM HYDROX 2400MG/30ML ORAL SUSPENSION 30 ML CUP PO PRN (12:10)
[2022-08-06] MEDS: THIAMINE HCL 100 MG TABLET (FP) PO SCH (21:31)
[2022-08-06] MEDS: SUVOREXANT 15 MG TABLET PO PRN (21:32)
[2022-08-06] MEDS: LIDOCAINE PATCH REMOVAL MC SCH (21:47)
[2022-08-07] MEDS: MONTELUKAST NA 10 MG TABLET PO SCH (06:03)
[2022-08-07] MEDS: GABAPENTIN 300 MG CAPSULE PO SCH ×3 (06:03→22:21)
[2022-08-07] MEDS: amLODIPine BESYLATE 5 MG TABLET (FP) PO SCH (10:25)
[2022-08-07] MEDS: PRENATAL VITAMINS W/ FOLIC ACID TABLET (FP) PO SCH (10:25)
[2022-08-07] MEDS: BUDESONIDE/FORMETEROL FUMARATE 160/4.5 mcg INHALER IH SCH ×2 (10:25→22:22)
[2022-08-07] MEDS: LIDOCAINE 5% TOPICAL PATCH TP SCH (10:26)
[2022-08-07] MEDS: NICOTINE 7 MG/24 HOURS TOPICAL PATCH TD SCH (10:26)
[2022-08-07] MEDS: PHENYLEPHRINE 0.25%/STARCH 1 EACH SUPP.RECT RC SCH ×2 (10:26→22:20)
[2022-08-07] MEDS: NALTREXONE HCL 50 MG TABLET PO SCH (10:26)
[2022-08-07] MEDS: METHOCARBAMOL 500 MG TABLET PO PRN ×2 (10:26→22:21)
[2022-08-07] MEDS: ACETAMINOPHEN 325 MG TABLET (FP) PO PRN (10:28)
[2022-08-07] MEDS: hydrOXYzine PAMOATE 25 MG CAPSULE (FP) PO PRN ×2 (10:28→22:21)
[2022-08-07] MEDS: NICOTINE 10 MG CARTRIDGE (INHALER) IH PRN (10:29)
[2022-08-07] MEDS: ALBUTEROL SO4 HFA INHALER IH PRN (10:30)
[2022-08-07] MEDS: MAGNESIUM HYDROX 2400MG/30ML ORAL SUSPENSION 30 ML CUP PO PRN (12:39)
[2022-08-07] MEDS: SUVOREXANT 15 MG TABLET PO PRN (22:19)
[2022-08-07] MEDS: LIDOCAINE PATCH REMOVAL MC SCH (22:20)
[2022-08-07] MEDS: THIAMINE HCL 100 MG TABLET (FP) PO SCH (22:21)
[2022-08-08] MEDS: GABAPENTIN 300 MG CAPSULE PO SCH ×3 (06:16→21:58)
[2022-08-08] MEDS: MONTELUKAST NA 10 MG TABLET PO SCH (06:17)
[2022-08-08] MEDS: BUDESONIDE/FORMETEROL FUMARATE 160/4.5 mcg INHALER IH SCH ×2 (10:36→21:58)
[2022-08-08] MEDS: PRENATAL VITAMINS W/ FOLIC ACID TABLET (FP) PO SCH (10:36)
[2022-08-08] MEDS: amLODIPine BESYLATE 5 MG TABLET (FP) PO SCH (10:37)
[2022-08-08] MEDS: LIDOCAINE 5% TOPICAL PATCH TP SCH (10:37)
[2022-08-08] MEDS: NALTREXONE HCL 50 MG TABLET PO SCH (10:37)
[2022-08-08] MEDS: PHENYLEPHRINE 0.25%/STARCH 1 EACH SUPP.RECT RC SCH ×2 (10:37→21:59)
[2022-08-08] MEDS: NICOTINE 7 MG/24 HOURS TOPICAL PATCH TD SCH (10:37)
[2022-08-08] MEDS: METHOCARBAMOL 500 MG TABLET PO PRN ×2 (10:38→21:58)
[2022-08-08] MEDS: ACETAMINOPHEN 325 MG TABLET (FP) PO PRN (10:38)
[2022-08-08] MEDS: hydrOXYzine PAMOATE 25 MG CAPSULE (FP) PO PRN ×3 (10:39→22:01)
[2022-08-08] MEDS: NICOTINE 10 MG CARTRIDGE (INHALER) IH PRN ×2 (10:40→14:09)
[2022-08-08] MEDS: MAGNESIUM HYDROX 2400MG/30ML ORAL SUSPENSION 30 ML CUP PO PRN (10:41)
[2022-08-08] MEDS: THIAMINE HCL 100 MG TABLET (FP) PO SCH (21:58)
[2022-08-08] MEDS: LIDOCAINE PATCH REMOVAL MC SCH (21:59)
[2022-08-08] MEDS: SUVOREXANT 15 MG TABLET PO PRN (22:00)
[2022-08-09] MEDS: GABAPENTIN 300 MG CAPSULE PO SCH ×3 (06:12→21:44)
[2022-08-09] MEDS: MONTELUKAST NA 10 MG TABLET PO SCH (06:12)
[2022-08-09] MEDS: NICOTINE 7 MG/24 HOURS TOPICAL PATCH TD SCH (10:54)
[2022-08-09] MEDS: PRENATAL VITAMINS W/ FOLIC ACID TABLET (FP) PO SCH (10:54)
[2022-08-09] MEDS: LIDOCAINE 5% TOPICAL PATCH TP SCH (10:54)
[2022-08-09] MEDS: NALTREXONE HCL 50 MG TABLET PO SCH (10:55)
[2022-08-09] MEDS: amLODIPine BESYLATE 5 MG TABLET (FP) PO SCH (10:55)
[2022-08-09] MEDS: PHENYLEPHRINE 0.25%/STARCH 1 EACH SUPP.RECT RC SCH (10:55)
[2022-08-09] MEDS: BUDESONIDE/FORMETEROL FUMARATE 160/4.5 mcg INHALER IH SCH ×2 (10:55→21:58)
[2022-08-09] MEDS: ALBUTEROL SO4 HFA INHALER IH PRN (10:56)
[2022-08-09] MEDS: ACETAMINOPHEN 325 MG TABLET (FP) PO PRN (10:57)
[2022-08-09] MEDS: METHOCARBAMOL 500 MG TABLET PO PRN ×2 (10:57→21:44)
[2022-08-09] MEDS: hydrOXYzine PAMOATE 25 MG CAPSULE (FP) PO PRN ×3 (10:57→21:44)
[2022-08-09] MEDS: NICOTINE 10 MG CARTRIDGE (INHALER) IH PRN ×3 (10:58→21:44)
[2022-08-09] MEDS: MAGNESIUM HYDROX 2400MG/30ML ORAL SUSPENSION 30 ML CUP PO PRN (14:44)
[2022-08-09] MEDS: THIAMINE HCL 100 MG TABLET (FP) PO SCH (21:44)
[2022-08-09] MEDS: SUVOREXANT 15 MG TABLET PO PRN (21:44)
[2022-08-09] MEDS: LIDOCAINE PATCH REMOVAL MC SCH (21:58)
[2022-08-10] MEDS: MONTELUKAST NA 10 MG TABLET PO SCH (06:03)
[2022-08-10] MEDS: GABAPENTIN 300 MG CAPSULE PO SCH ×3 (06:03→21:46)
[2022-08-10 07:23] VITALS: RESP 18
[2022-08-10] MEDS: PRENATAL VITAMINS W/ FOLIC ACID TABLET (FP) PO SCH (10:33)
[2022-08-10] MEDS: amLODIPine BESYLATE 5 MG TABLET (FP) PO SCH (10:34)
[2022-08-10] MEDS: NICOTINE 7 MG/24 HOURS TOPICAL PATCH TD SCH (10:34)
[2022-08-10] MEDS: hydrOXYzine PAMOATE 25 MG CAPSULE (FP) PO PRN ×3 (10:34→21:46)
[2022-08-10] MEDS: METHOCARBAMOL 500 MG TABLET PO PRN ×2 (10:34→21:46)
[2022-08-10] MEDS: BUDESONIDE/FORMETEROL FUMARATE 160/4.5 mcg INHALER IH SCH ×2 (10:34→22:31)
[2022-08-10] MEDS: NALTREXONE HCL 50 MG TABLET PO SCH (10:34)
[2022-08-10] MEDS: LIDOCAINE 5% TOPICAL PATCH TP SCH (10:34)
[2022-08-10] MEDS: NICOTINE 10 MG CARTRIDGE (INHALER) IH PRN (10:35)
[2022-08-10] MEDS: ACETAMINOPHEN 325 MG TABLET (FP) PO PRN ×2 (10:35→21:46)
[2022-08-10] MEDS: MAGNESIUM HYDROX 2400MG/30ML ORAL SUSPENSION 30 ML CUP PO PRN (10:37)
[2022-08-10] MEDS: SUVOREXANT 5 MG TABLET PO PRN (21:45)
[2022-08-10] MEDS: THIAMINE HCL 100 MG TABLET (FP) PO SCH (21:46)
[2022-08-10] MEDS: LIDOCAINE PATCH REMOVAL MC SCH (22:31)
[2022-08-11] MEDS: GABAPENTIN 300 MG CAPSULE PO SCH ×3 (05:54→21:49)
[2022-08-11] MEDS: MONTELUKAST NA 10 MG TABLET PO SCH (06:15)
[2022-08-11] MEDS: NICOTINE 7 MG/24 HOURS TOPICAL PATCH TD SCH (10:16)
[2022-08-11] MEDS: hydrOXYzine PAMOATE 25 MG CAPSULE (FP) PO PRN ×3 (10:16→21:49)
[2022-08-11] MEDS: NALTREXONE HCL 50 MG TABLET PO SCH (10:16)
[2022-08-11] MEDS: amLODIPine BESYLATE 5 MG TABLET (FP) PO SCH (10:16)
[2022-08-11] MEDS: PRENATAL VITAMINS W/ FOLIC ACID TABLET (FP) PO SCH (10:16)
[2022-08-11] MEDS: METHOCARBAMOL 500 MG TABLET PO PRN ×2 (10:16→21:49)
[2022-08-11] MEDS: LIDOCAINE 5% TOPICAL PATCH TP SCH (10:17)
[2022-08-11] MEDS: ACETAMINOPHEN 325 MG TABLET (FP) PO PRN (10:18)
[2022-08-11] MEDS: BUDESONIDE/FORMETEROL FUMARATE 160/4.5 mcg INHALER IH SCH ×2 (10:19→23:10)
[2022-08-11] MEDS: ALBUTEROL SO4 HFA INHALER IH PRN (10:19)
[2022-08-11] MEDS: NICOTINE 10 MG CARTRIDGE (INHALER) IH PRN ×2 (14:10→21:49)
[2022-08-11] MEDS: MAGNESIUM HYDROX 2400MG/30ML ORAL SUSPENSION 30 ML CUP PO PRN (18:31)
[2022-08-11] MEDS: SUVOREXANT 5 MG TABLET PO PRN (21:48)
[2022-08-11] MEDS: THIAMINE HCL 100 MG TABLET (FP) PO SCH (21:49)
[2022-08-11] MEDS: LIDOCAINE PATCH REMOVAL MC SCH (23:09)
[2022-08-12] MEDS: GABAPENTIN 300 MG CAPSULE PO SCH ×3 (06:19→21:49)
[2022-08-12] MEDS: MONTELUKAST NA 10 MG TABLET PO SCH (06:19)
[2022-08-12] MEDS: PRENATAL VITAMINS W/ FOLIC ACID TABLET (FP) PO SCH (10:48)
[2022-08-12] MEDS: BUDESONIDE/FORMETEROL FUMARATE 160/4.5 mcg INHALER IH SCH ×2 (10:48→22:12)
[2022-08-12] MEDS: METHOCARBAMOL 500 MG TABLET PO PRN ×2 (10:48→21:49)
[2022-08-12] MEDS: amLODIPine BESYLATE 5 MG TABLET (FP) PO SCH (10:48)
[2022-08-12] MEDS: NALTREXONE HCL 50 MG TABLET PO SCH (10:48)
[2022-08-12] MEDS: NICOTINE 7 MG/24 HOURS TOPICAL PATCH TD SCH (10:48)
[2022-08-12] MEDS: hydrOXYzine PAMOATE 25 MG CAPSULE (FP) PO PRN ×3 (10:49→21:49)
[2022-08-12] MEDS: ACETAMINOPHEN 325 MG TABLET (FP) PO PRN (10:49)
[2022-08-12] MEDS: MAGNESIUM HYDROX 2400MG/30ML ORAL SUSPENSION 30 ML CUP PO PRN (10:51)
[2022-08-12] MEDS: NICOTINE 10 MG CARTRIDGE (INHALER) IH PRN (10:54)
[2022-08-12] MEDS: ALBUTEROL SO4 HFA INHALER IH PRN (10:54)
[2022-08-12 11:23] VITALS: PULSE 81
[2022-08-12] MEDS: LIDOCAINE 5% TOPICAL PATCH TP SCH (11:34)
[2022-08-12] MEDS: IBUPROFEN 400 MG TABLET (FP) PO PRN (15:00)
[2022-08-12] MEDS: THIAMINE HCL 100 MG TABLET (FP) PO SCH (21:49)
[2022-08-12] MEDS: LIDOCAINE PATCH REMOVAL MC SCH (22:12)
[2022-08-12] MEDS: SUVOREXANT 5 MG TABLET PO PRN (22:12)
[2022-08-13] MEDS: MONTELUKAST NA 10 MG TABLET PO SCH (06:19)
[2022-08-13] MEDS: GABAPENTIN 300 MG CAPSULE PO SCH (06:19)
[2022-08-13] MEDS: METHOCARBAMOL 500 MG TABLET PO PRN (06:20)
[2022-08-13 07:36] VITALS: BP 126/72; TEMP 96.1
[2022-08-13] MEDS: NICOTINE 7 MG/24 HOURS TOPICAL PATCH TD SCH (09:38)
[2022-08-13] MEDS: NALTREXONE HCL 50 MG TABLET PO SCH (09:40)
[2022-08-13] MEDS: hydrOXYzine PAMOATE 25 MG CAPSULE (FP) PO PRN (09:40)
[2022-08-13] MEDS: LIDOCAINE 5% TOPICAL PATCH TP SCH (09:40)
[2022-08-13] MEDS: amLODIPine BESYLATE 5 MG TABLET (FP) PO SCH (09:41)
[2022-08-13] MEDS: PRENATAL VITAMINS W/ FOLIC ACID TABLET (FP) PO SCH (09:41)
[2022-08-13] MEDS: BUDESONIDE/FORMETEROL FUMARATE 160/4.5 mcg INHALER IH SCH (09:41)
[2022-08-13] MEDS: ALBUTEROL SO4 HFA INHALER IH PRN (09:42)
[2022-08-13] MEDS: NICOTINE 10 MG CARTRIDGE (INHALER) IH PRN (10:04)
== END 2022-08-13 10:05 | disposition home or self-care (01) | DRG 772 ==
LOC: YASAS 15:25 → Y5N 15:26
PROVIDERS: ADMIT Allergy & Immunology; ATTEND Surgery
PROC: HZ42ZZZ Group Counseling for Substance Abuse Treatment, Cognitive-Behavioral (ICD-10-PCS; principal; 2022-07-16)
DX: F10.20 Alcohol dependence, uncomplicated (principal); F12.20 Cannabis dependence, uncomplicated; F17.210 Nicotine dependence, cigarettes, uncomplicated; F10.24 Alcohol dependence with alcohol-induced mood disorder; F32.A Depression, unspecified; I10 Essential (primary) hypertension; J45.909 Unspecified asthma, uncomplicated; K21.9 Gastro-esophageal reflux disease without esophagitis; M54.50 Low back pain, unspecified; G89.29 Other chronic pain; Z99.89 Dependence on other enabling machines and devices; Z51.81 Encounter for therapeutic drug level monitoring
CPT/HCPCS: 36415; 81003; 87389